=== PATIENT | male | born 1975 | race Caucasian/White ===

== ENCOUNTER 2017-07-13 04:20 | Observation (INO) | payer OTHER ==
[2017-07-13] MEDS ORDERED: ORPHENADRINE 30 MG/ML 2 ML VIAL IM STA (04:40)
[2017-07-13] MEDS ORDERED: KETOROLAC 60 MG/2 ML VIAL IM STA (04:40)
--- NOTE | 2017-07-13 04:48 | ED ---
Back Pain HPI - General Source: patient, family Limitations: no limitations - History of Present Illness MD Complaint: back pain -: minutes(s) Similar Symptoms Previously: Yes Place: home Radiation: right leg Severity: severe Quality: other Consistency: intermittent Improves With: none Worsens With: movement Context: bending Associated Symptoms: denies other symptoms <Kennedy Higgins - Last Filed: 07/13/17 07:11> <Ronald Austin - Last Filed: 07/13/17 09:20> - General Chief Complaint: Back Pain/Injury Stated Complaint: Back pain Time Seen by Provider: 07/13/17 04:34 - History of Present Illness Initial Comments: This patient is a 41-year-old man who presents to be evaluated for lumbar back pain, mainly at the right above the posterior iliac crest, that radiates towards his right buttocks and right leg. The pain came on this morning acutely when he went to tie his boots before going to work. The patient states that the pain seems to come in spasms or waves. When it does it is severe. It seems he brought on by trying to move. It may be a touch better if he tries to lie still. He has not had pain radiating to the abdomen. He has not had change in bladder or bowel function. There is no saddle anesthesia. He did not have any acute trauma to his back. (Kennedy Higgins) - Related Data Home Medications Medication Instructions Recorded Confirmed Baclofen (Unknown Dose) 1 tab PO BID PRN 07/13/17 07/13/17 Allergies Allergy/AdvReac Type Severity Reaction Status Date / Time No Known Allergies Allergy Verified 07/13/17 07:18 Review of Systems ROS Other: All systems not noted in ROS Statement are negative. Constitutional: Denies: fever, weakness Gastrointestinal: Denies: abdominal pain, diarrhea, constipation Genitourinary: Denies: dysuria, hematuria Musculoskeletal: Reports: as per HPI, back pain Neurological: Denies: weakness, numbness, paresthesias <Kennedy Higgins - Last Filed: 07/13/17 07:11> ROS Other: All systems not noted in ROS Statement are negative. <Ronald Austin - Last Filed: 07/13/17 09:20> ROS Statement: Those systems with pertinent positive or pertinent negative responses have been documented in the HPI. Past Medical History Additional Past Medical History / Comment(s): neuropathy History of Any Multi-Drug Resistant Organisms: None Reported Past Surgical History: Tonsillectomy Additional Past Surgical History / Comment(s): cataract surgery Past Psychological History: No Psychological Hx Reported Smoking Status: Never smoker Past Alcohol Use History: Occasional Past Drug Use History: None Reported <Kennedy Higgins - Last Filed: 07/13/17 07:11> General Exam Limitations: no limitations General appearance: alert, in no apparent distress Head exam: Present: atraumatic, normocephalic Neck exam: Present: full ROM Respiratory exam: Present: normal lung sounds bilaterally. Absent: respiratory distress, wheezes, rales, rhonchi, stridor Cardiovascular Exam: Present: regular rate, normal rhythm, normal heart sounds. Absent: systolic murmur, diastolic murmur, rubs, gallop GI/Abdominal exam: Present: soft. Absent: distended, tenderness, guarding, rebound, mass, pulsatile mass Back exam: Present: normal inspection. Absent: CVA tenderness (R), CVA tenderness (L) Neurological exam: Present: reflexes normal. Absent: motor sensory deficit Skin exam: Present: warm, dry, intact, normal color. Absent: rash <NainKennedy chris - Last Filed: 07/13/17 07:11> Vital Signs 07/13/17 07/13/17 07/13/17 04:23 05:26 06:28 Temperature 97.9 F 98.9 F Pulse Rate 90 90 86 Respiratory 18 20 18 Rate Blood Pressure 144/91 154/79 113/69 O2 Sat by Pulse 100 98 100 Oximetry Medical Decision Making <NainariesKennedy - Last Filed: 07/13/17 07:11> - Radiology Data Radiology results: report reviewed (Computed tomography scan lumbar spine shows multilevel degenerative changes. No significant change from prior MRI.) <Ronald Austin - Last Filed: 07/13/17 09:20> - Medical Decision Making Patient was reevaluated by myself, Dr. Austin. Patient has tenderness to the paralumbar muscles. Patient states he's been having chronic problems from his background radiating to his leg, mostly the knee. Patient states no one is able to tell him why he is having these problems. Patient states today he bent over to tie his boot and has had significant discomfort since that time, specifically with movement. Discomfort is only mild at rest. Pedal pulses are intact. Sensation is intact. No leg weakness. Patient and family are updated on results. Patient states he is unable to walk or move without significant pain. is not comfortable with discharge home. Case was discussed in detail with Dr. Myrick, who will admit for Dr. Cole. (Ronald Austin) Disposition <Kennedy Higgins - Last Filed: 07/13/17 07:11> <Ronald Austin - Last Filed: 07/13/17 09:20> Clinical Impression: Lower back pain Disposition: ADMITTED IP TO THIS HOSP Referrals: Silvestre Wong DO [Primary Care Provider] - 1-2 days
[2017-07-13] MEDS ORDERED: HYDROmorphone 1 MG/ML 1 ML SYRINGE IM STA (05:32)
[2017-07-13] MEDS ORDERED: methylPREDNISolone SOD SUCCI 125 MG/2 ML VIAL IM ONE (06:21)
[2017-07-13 06:30] VITALS: RESP 18
[2017-07-13] MEDS ORDERED: DIAZEPAM 5 MG/ML 2 ML INJ IM ONE (07:11)
[2017-07-13] MEDS ORDERED: DIAZEPAM 5 MG TAB PO STA (07:14)
--- NOTE | 2017-07-13 07:47 | CT ---
EXAMINATION TYPE: CT lumbar spine wo con DATE OF EXAM: 07/13/2017 COMPARISON: MRI lumbar spine January 21, 2016 HISTORY: Severe low back pain, no known injury CT DLP: 946 mGycm Automated exposure control for dose reduction was used. FINDINGS: I will use of some assuming bilateral accessory L1 ribs. Given this assumption there are 5 lumbar-typ e vertebra. Lumbar spine show slight levoconvex scoliotic curvature on today's study may be positiona l. There is no acute fracture or dislocation evident. There is fairly mild to moderate multilevel ant erior and lateral spurring redemonstrated. Vertebral body heights are maintained. There is mild to mo derate disc space narrowing L2-L3 level redemonstrated. No large posterior disc herniations are seen on sagittal images. Review of axial images shows the T12-L1 and L1-L2 levels to remain within normal limits. Axial images at L2-L3 level show mild broad disc bulge mildly effacing anterior thecal sac with more prominent left lateral disc protrusion component seen best coronal image 19. There is mild bilateral anterior inferior neural foraminal narrowing. No significant change from prior MRI. Axial images at L3-L4 level show broad disc bulge mildly effacing anterior thecal sac and mild facet degenerative changes bilaterally. Mild bilateral anterior inferior neural foraminal narrowing at this level redemonstrated. No significant change from prior. Axial images at L4-L5 and L5-S1 level show mild facet degenerative changes bilaterally otherwise are felt within normal limits. There are suspected 2 small calculi centrally in right kidney mid to lower pole level on coronal imag e 15 measuring 2-3 mm in size each. Some spurring and joint space loss right sacroiliac joint is note d seen best near coronal image 20. IMPRESSION: Multilevel degenerative changes in the lumbar spine as detailed above, no significant tia nge from prior MRI is identified. There is no acute fracture or dislocation seen.
[2017-07-13] MEDS ORDERED: KETOROLAC 30 MG/ML 1 ML VIAL IVP PRN (09:20)
[2017-07-13] MEDS ORDERED: NALOXONE 0.4 MG/ML 1 ML VIAL IV PRN (09:20)
[2017-07-13] MEDS: HYDROmorphone 1 MG/ML 1 ML SYRINGE IVP PRN ×2 (09:38→12:38)
[2017-07-13 11:54] VITALS: BP 115/59; PULSE 76; TEMP 97.6
[2017-07-13] MEDS ORDERED: methylPREDNISolone SOD SUCCI 125 MG/2 ML VIAL IV SCH (16:00)
--- NOTE | 2017-07-13 17:39 | P.HPIM ---
History of Present Illness 41-year-old male came in with complaints of lumbar back pain severe pain about 10 x 10 unable to I am bleed because of which patient was admitted patient was treated with the Decadron with significant improvement in his symptoms patient denied any weakness and bilateral lower limbs patient denied radicular pain patient denied any loss of bowel or bladder continence patient pain significantly improved after initial management with with pain medications and antispasmodic medications. Patient had a CAT scan of the lumbar spine which showed chronic lumbar degenerative disc disease multiple levels without any significant disc herniation. 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 Patient was advised to use BenGay and heat padding. Patient will follow with orthopedic surgery as an outpatient. Patient doesn't have any red flag signs of back pain at this time. Review of Systems PHYSICAL EXAMINATION: GENERAL: The patient is alert and oriented x3, not in any acute distress. Well developed, well nourished. HEENT: Pupils are round and equally reacting to light. EOMI. No scleral icterus. No conjunctival pallor. Normocephalic, atraumatic. No pharyngeal erythema. No thyromegaly. CARDIOVASCULAR: S1 and S2 present. No murmurs, rubs, or gallops. PULMONARY: Chest is clear to auscultation, no wheezing or crackles. ABDOMEN: Soft, nontender, nondistended, normoactive bowel sounds. No palpable organomegaly. MUSCULOSKELETAL: Severe back pain as mentioned above without any radicular symptoms EXTREMITIES: No cyanosis, clubbing, or pedal edema. NEUROLOGICAL: Gross neurological examination did not reveal any focal deficits. SKIN: No rashes. Past Medical History Additional Past Medical History / Comment(s): Past low back pain. 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 Past Anesthesia/Blood Transfusion Reactions: No Reported Reaction Smoking Status: Never smoker - Past Family History Father Additional Family Medical History / Comment(s): Father has a pacemaker. Mother Family Medical History: Hypertension Additional Family Medical History / Comment(s): Degenerative arthritis. Medications and Allergies Home Medications Medication Instructions Recorded Confirmed Type Cyclobenzaprine [Flexeril] 10 mg PO TID PRN #20 tab 07/13/17 Rx HYDROcodone/APAP 7.5-325MG [[place] 1 tab PO Q4H PRN #20 tab 07/13/17 Rx 7.5-325] Meloxicam [Meloxicam] 15 mg PO DAILY PRN 07/13/17 07/13/17 History Meloxicam [Mobic] 7.5 mg PO DAILY PRN #20 tab 07/13/17 Rx Ranitidine HCl [Zantac] 150 mg PO BID #30 tab 07/13/17 Rx predniSONE 10 mg PO DAILY #30 tab 07/13/17 Rx Allergies Allergy/AdvReac Type Severity Reaction Status Date / Time No Known Allergies Allergy Verified 07/13/17 07:18 Physical Exam Vitals: Vital Signs Temp Pulse Pulse Resp BP BP Pulse Ox 07/13/17 11:50 97.6 F 76 18 115/59 96 07/13/17 10:36 97.8 F 87 18 115/66 96 07/13/17 09:35 97.8 F 88 18 133/77 100 07/13/17 06:28 98.9 F 86 18 113/69 100 07/13/17 05:26 90 20 154/79 98 07/13/17 04:23 97.9 F 90 18 144/91 100 Intake and Output 07/13/17 07/13/17 07/13/17 06:59 14:59 22:59 Intake Total 450 Balance 450 Intake: Oral 450 Other: Voiding Method Urinal Weight 83.915 kg PHYSICAL EXAMINATION: GENERAL: The patient is alert and oriented x3, not in any acute distress. Well developed, well nourished. HEENT: Pupils are round and equally reacting to light. EOMI. No scleral icterus. No conjunctival pallor. Normocephalic, atraumatic. No pharyngeal erythema. No thyromegaly. CARDIOVASCULAR: S1 and S2 present. No murmurs, rubs, or gallops. PULMONARY: Chest is clear to auscultation, no wheezing or crackles. ABDOMEN: Soft, nontender, nondistended, normoactive bowel sounds. No palpable organomegaly. MUSCULOSKELETAL: Patient does have lower lumbar paraspinal tenderness, did not perform straight leg raising test as patient was already evaluated by orthopedic surgery EXTREMITIES: No cyanosis, clubbing, or pedal edema. NEUROLOGICAL: Gross neurological examination did not reveal any focal deficits. SKIN: No rashes. Thrombosis Risk Factor Assmnt - Choose All That Apply Any of the Below Risk Factors Present?: Yes Each Factor Represents 1 point: Age 41-60 years, Obesity (BMI >25) Other Risk Factors: No Other congenital or acquired thrombophilia - If yes, enter type in comment: No Thrombosis Risk Factor Assessment Total Risk Factor Score: 2 Thrombosis Risk Factor Assessment Level: Low Risk Assessment and Plan Plan: #1 low back pain with paraspinal muscle spasm: Patient will be discharged up with above-mentioned instructions. #2 severe lumbar degenerative disc disease.
--- NOTE | 2017-07-13 17:40 | P.DS ---
Providers Date of admission: 07/13/17 09:21 Attending physician: Bart Myrick Consults: 07/13/17 09:21 Consult Physician Routine Consulting Provider: Harshad Renee Consult Reason/Comments: low back pain Do you want consulting provider notified?: Yes 07/13/17 13:08 Consult to Anesthesia Routine Consulting Provider: Anesthesia,Services Consult Reason/Comments: Right lower extremity radiculopathy and low back pain Primary care physician: Silvestre Wong [facility] Course: Please refer to my HPI Plan - Discharge Summary Discharge Rx Participant: No New Discharge Prescriptions: New Cyclobenzaprine [Flexeril] 10 mg PO TID PRN #20 tab PRN Reason: Spasms HYDROcodone/APAP 7.5-325MG [[place] 7.5-325] 1 tab PO Q4H PRN #20 tab PRN Reason: Pain Meloxicam [Mobic] 7.5 mg PO DAILY PRN #20 tab PRN Reason: Pain predniSONE 10 mg PO DAILY #30 tab Ranitidine HCl [Zantac] 150 mg PO BID #30 tab Continue Meloxicam [Meloxicam] 15 mg PO DAILY PRN PRN Reason: KNEE PAIN Discharge Medication List Cyclobenzaprine [Flexeril] 10 mg PO TID PRN #20 tab 07/13/17 [Rx] HYDROcodone/APAP 7.5-325MG [[place] 7.5-325] 1 tab PO Q4H PRN #20 tab 07/13/17 [Rx ] Meloxicam [Meloxicam] 15 mg PO DAILY PRN 07/13/17 [History] Meloxicam [Mobic] 7.5 mg PO DAILY PRN #20 tab 07/13/17 [Rx] Ranitidine HCl [Zantac] 150 mg PO BID #30 tab 07/13/17 [Rx] predniSONE 10 mg PO DAILY #30 tab 07/13/17 [Rx] Follow up Appointment(s)/Referral(s): Harshad Renee DO [Doctor of Osteopathic Medicine] - As Needed Silvestre Wong DO [Primary Care Provider] - 1-2 days Patient Instructions/Handouts: Acute Low Back Pain (GEN) Discharge Disposition: HOME SELF-CARE
--- NOTE | 2017-07-14 17:46 | P.CNOR ---
History of Present Illness - [facility] Consult date: 07/13/17 Requesting physician: Ronald Austin Consult reason: low back pain, other (Right lower extremity radiculopathy) History of present illness: Patient is very pleasant 41-year-old male who is seen and examined at the bedside for further evaluation after consultation was placed for acute low back pain with significant right lower extremity radiculopathy. Patient states this morning he was sitting down leaning towards his left putting on his work boots when he experienced significant pain in his lumbar spine with pain radiating down the right posterior leg all the way to the foot. He had significant difficulty with standing on his right lower extremity pain. He was brought to the emergency department for further evaluation. A CT lumbar spine was performed at that time. He was also given Solu-Medrol 125 mg. He was transferred to the observation unit for further evaluation. Since being transferred he is receiving Dilaudid and Toradol for some relief of symptoms. He states he does have a history of low back pain and previously had an MRI performed approximately year and a half ago. He states prior to that he did have a significant injury which he tore his right hamstring and has had some difficulty with his right leg since that time. He denies specific weakness the right lower extremity but has difficulty ambulating due to pain. Denies any left lower extremity radiculopathy or weakness. He is able to eat without significant difficulty. Past Medical History Additional Past Medical History / Comment(s): Past low back pain. 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 Past Anesthesia/Blood Transfusion Reactions: No Reported Reaction Smoking Status: Never smoker - Past Family History Father Additional Family Medical History / Comment(s): Father has a pacemaker. Mother Family Medical History: Hypertension Additional Family Medical History / Comment(s): Degenerative arthritis. Medications and Allergies Home Medications Medication Instructions Recorded Confirmed Type Cyclobenzaprine [Flexeril] 10 mg PO TID PRN #20 tab 07/13/17 Rx HYDROcodone/APAP 7.5-325MG [[place] 1 tab PO Q4H PRN #20 tab 07/13/17 Rx 7.5-325] Meloxicam [Meloxicam] 15 mg PO DAILY PRN 07/13/17 07/13/17 History Meloxicam [Mobic] 7.5 mg PO DAILY PRN #20 tab 07/13/17 Rx Ranitidine HCl [Zantac] 150 mg PO BID #30 tab 07/13/17 Rx predniSONE 10 mg PO DAILY #30 tab 07/13/17 Rx Allergies Allergy/AdvReac Type Severity Reaction Status Date / Time No Known Allergies Allergy Verified 07/13/17 07:18 Physical Examination Physical exam: Patient is awake, alert, and oriented 3 Vital signs stable Good chest excursion with deep inspiration and expiration Examination of lumbar spine reveals skin is intact with no abrasions, lacerations, or bruises; no erythema, purulence or signs of infection Lumbar paravertebral spasm most significant on the right Dorsiflexion, plantarflexion, and extensor hallucis longus positive sustained bilaterally Lower extremity strength 5/5 bilaterally but right lower extremity movements are slow throughout range of motion Patellar reflex 2+ bilaterally and Achilles reflexes 2+ bilaterally No lower extremity hyperreflexia bilaterally Straight leg test negative bilateral lower extremities Negative Lasegue's test bilaterally No signs or symptoms of DVT; no calf pain No pain with internal and external rotation of the hips bilaterally Neurovascularly intact Results Pertinent Studies: CT lumbar spine: Imaging compared to previous MRI taken on 01/21/2016; No evidence off acute fracture or dislocation; overall alignment of the lumbar spine appears to be adequately maintained; L2-3 degenerative disc disease and disc bulging; L3-4 broad-based disc bulge and mild facet arthropathy resulting in mild bilateral neural foraminal narrowing; L4-5 and L5-S1 mild facet degenerative changes Assessment and Plan (1) Intractable low back pain Status: Acute Code(s): M54.5 - LOW BACK PAIN SNOMED Code(s): 49213235899161485 (2) Lumbar back pain with radiculopathy affecting right lower extremity Status: Acute Code(s): M54.17 - RADICULOPATHY, LUMBOSACRAL REGION SNOMED Code(s): 662463294 (3) Lumbar degenerative disc disease Status: Acute Code(s): M51.36 - OTHER INTERVERTEBRAL DISC DEGENERATION, LUMBAR REGION SNOMED Code(s): 63508965 (4) Lumbar facet arthropathy Status: Acute Code(s): M46.96 - UNSPECIFIED INFLAMMATORY SPONDYLOPATHY, LUMBAR REGION SNOMED Code(s): 772644363 Plan: Assessment: Intractable low back pain Right lower extremity radiculopathy Difficulty with ambulation due to lower extremity radiculopathy L2-3 degenerative disc disease Lumbar facet arthropathy Plan: 1. Patient has been discussed in detail with Dr. Sudheer Renee. After further examination of the patient, reviewing of imaging, and discussion with the patient, we were planning to obtain an MRI of the lumbar spine without contrast for further evaluation. We also planning to start the patient on Solu-Medrol 80 mg IV every 8 hours. We were also planning to consult with pain management further evaluation discuss possible treatment options. Medicine states they are currently planing to discharge the patient today with subsequent evaluation in the outpatient setting 2. Continue pain control 3. Medicine to continue following the patient closely; patient has been discussed in detail with medicine who states they're not planning to obtain the MRI of the lumbar spine today but we'll plan for discharge today further evaluation set for the outpatient setting; medicine plans to prescribe the patient a prednisone taper and Flexeril at discharge 4. Consultation has been placed with Dr. Mcgrath in pain management 5. Patient will plan to follow-up in the outpatient setting in approximately 2 weeks for further evaluation; if his symptoms continue to be persistent, we'll plan to obtain an MRI of the lumbar spine at that time 6. Patient has been discussed in detail with Dr. Sudheer Renee and he agrees with this plan Time with Patient: Greater than 30
== END 2017-07-13 14:41 | disposition home or self-care (01) ==
LOC: EC 04:20 → SUPCPDRO 04:20 → 3OBS 09:21
PROVIDERS: ADMIT Internal Medicine; ATTEND Internal Medicine
DX: M51.16 Intervertebral disc disorders with radiculopathy, lumbar region (principal); M46.96 Unspecified inflammatory spondylopathy, lumbar region; G62.9 Polyneuropathy, unspecified; M62.830 Muscle spasm of back; Z82.49 Family history of ischemic heart disease and other diseases of the circulatory system; Z79.899 Other long term (current) drug therapy; Z79.52 Long term (current) use of systemic steroids; Z82.61 Family history of arthritis
CPT/HCPCS: 96375; 96376; 96372; 96374; 99285; 72131; G0378; J2360; J2930; J1885 ×2; J1170

== ENCOUNTER → 2017-07-26 | Outpatient (CLI) | payer OTHER ==
--- NOTE | 2017-07-27 09:13 | MR ---
EXAMINATION TYPE: MR lumbar spine wo con DATE OF EXAM: 07/26/2017 COMPARISON: MRI 01/21/2016, CT scan 07/13/2017 HISTORY: Back pain TECHNIQUE: T1 and T2 axial and sagittal images of the lumbar spine are submitted. FINDINGS: There is no abnormal signal seen within the visualized spinal cord or paraspinal soft tissu es. At L1-2 there is no disc herniation or canal stenosis. No foraminal encroachment. At L2-3 there is moderate degenerative disc disease with circumferential disc bulging. Bulging greate r laterally to left all with findings suggestive of a broad-based protrusion There is borderline kaitlin l stenosis. Mild bilateral foraminal At L3-4 there is mild degenerative disc disease with circumferential disc bulging and hypertrophic ch marita since. Borderline canal stenosis. Mild bilateral foraminal encroachment At L4-5 there is no disc herniation or canal stenosis. No foraminal encroachment At L5-S1 there is hypertrophic change of the facets. No disc herniation or canal stenosis. No foramin al encroachment IMPRESSION: 1. Similar findings to the CT scan 07/13/2017 demonstrating multilevel degenerative disc disease. Dis c bulging at L2-3 and L3-4 as discussed above. Broad-based lateral protrusion to the left at L2-L3. 2. Foraminal encroachment and L2-3 and L3-4
== END | disposition home or self-care (01) ==
LOC: RADMRIMAIN 20:51
PROVIDERS: ATTEND Family Medicine
DX: M51.16 Intervertebral disc disorders with radiculopathy, lumbar region (principal)
CPT/HCPCS: 72148

== ENCOUNTER 2018-03-20 18:11 | Emergency (ER) | payer OTHER ==
[2018-03-20] MEDS ORDERED: SODIUM CHLORIDE 0.9% 1,000 ML IV STA (18:40)
[2018-03-20] MEDS ORDERED: KETOROLAC 30 MG/ML 1 ML VIAL IVP STA (18:42)
--- NOTE | 2018-03-20 18:48 | ED ---
General Adult HPI - General Source: patient, RN notes reviewed Mode of arrival: ambulatory Limitations: no limitations <Jacky Gasca P - Last Filed: 03/20/18 21:05> <Cheyenne Banegas P - Last Filed: 03/21/18 21:16> - General Chief complaint: Abdominal Pain Stated complaint: abd pain Time Seen by Provider: 03/20/18 18:20 - History of Present Illness Initial comments: 42-year-old male presents to the emergency determine for a chief complaint of right upper quadrant pain 4 hours. Patient states he ate a large meal at [email or web address] and started to have pain shortly after that. Patient states the pain is also radiating to his back. Patient denies any abdominal surgeries. No major medical conditions. Patient denies any pain or burning with urination. Patient admits to nausea at home, but denies vomiting. Patient last had a normal bowel movement today, no diarrhea. No fevers or chills at home. Patient denies heavy drinking. Patient has no other complaints at this time including shortness of breath, chest pain, abdominal pain, nausea or vomiting, headache, or visual changes. (Jacky Gasca) - Related Data Home Medications Medication Instructions Recorded Confirmed Meloxicam 15 mg PO DAILY PRN 07/13/17 07/13/17 Previous Rx's Medication Instructions Recorded Cyclobenzaprine [Flexeril] 10 mg PO TID PRN #20 tab 07/13/17 HYDROcodone/APAP 7.5-325MG [[place] 1 tab PO Q4H PRN #20 tab 07/13/17 7.5-325] Meloxicam [Mobic] 7.5 mg PO DAILY PRN #20 tab 07/13/17 Ranitidine HCl [Zantac] 150 mg PO BID #30 tab 07/13/17 predniSONE 10 mg PO DAILY #30 tab 07/13/17 Allergies Allergy/AdvReac Type Severity Reaction Status Date / Time No Known Allergies Allergy Verified 03/20/18 18:13 Review of Systems ROS Other: All systems not noted in ROS Statement are negative. <Jacky Gasca - Last Filed: 03/20/18 21:05> ROS Other: All systems not noted in ROS Statement are negative. <Cheyenne Banegas P - Last Filed: 03/21/18 21:16> ROS Statement: Those systems with pertinent positive or pertinent negative responses have been documented in the HPI. Past Medical History Additional Past Medical History / Comment(s): Past low back pain. 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 right knee replaced Past Anesthesia/Blood Transfusion Reactions: No Reported Reaction Past Psychological History: No Psychological Hx Reported Smoking Status: Never smoker Past Alcohol Use History: Occasional Past Drug Use History: None Reported - Past Family History Father Additional Family Medical History / Comment(s): Father has a pacemaker. Mother Family Medical History: Hypertension Additional Family Medical History / Comment(s): Degenerative arthritis. <Jacky Gasca P - Last Filed: 03/20/18 21:05> General Exam Limitations: no limitations General appearance: alert, in no apparent distress Head exam: Present: atraumatic, normocephalic Eye exam: Present: normal appearance. Absent: scleral icterus, conjunctival injection ENT exam: Present: normal exam, mucous membranes moist Neck exam: Present: normal inspection, full ROM. Absent: tenderness, meningismus, lymphadenopathy Respiratory exam: Present: normal lung sounds bilaterally. Absent: respiratory distress, wheezes, rales, rhonchi, stridor Cardiovascular Exam: Present: regular rate, normal rhythm, normal heart sounds. Absent: systolic murmur, diastolic murmur, rubs, gallop, clicks GI/Abdominal exam: Present: soft, tenderness (exquisite RUQ tenderness. mild epigastric tenderness. NO tenderness in the RLQ, LLQ, or LUQ. ), normal bowel sounds, other (+ hill sign, negative obturator, psoas, and rovsing signs.). Absent: distended, guarding, rebound, rigid Back exam: Present: CVA tenderness (R) (very mild CVA tenderness. ) <Jacky Gasca P - Last Filed: 03/20/18 21:05> Vital Signs 03/20/18 03/20/18 18:13 20:50 Temperature 98.3 F 97.6 F Pulse Rate 68 57 L Respiratory 18 16 Rate Blood Pressure 158/102 144/93 O2 Sat by Pulse 100 99 Oximetry Medical Decision Making - Lab Data Result diagrams: 03/20/18 18:55 03/20/18 18:55 <Jacky Gasca P - Last Filed: 03/20/18 21:05> - Lab Data Result diagrams: 03/20/18 18:55 03/20/18 18:55 <Cheyenne Banegas P - Last Filed: 03/21/18 21:16> - Medical Decision Making 42-year-old male presents to the emergency department for a chief complaint of right upper quadrant pain 4 hours. This started shortly after consuming a large meal from below. Denies heavy drinking or major medical complications. Denes chest pain, SOB. On exam patient has exquisite right upper quadrant tenderness. No tenderness elsewhere in the abdomen. Patient also has right flank pain. CBC and CMP unremarkable. Urine is clear, no evidence of blood or infection. Ultrasound of the gallbladder shows no gallstones. Patient was given Toradol in the emergency department. On reexamination, patient is feeling much better. Pain is resolved. I did offer a CAT scan which patient refused. Patient will be discharged home with follow-up to primary care in 1-2 days. (Jacky Gasca) The patient was seen and evaluated independently by the mid-level provider. I did discuss the workup and disposition plan with the mid-level provider, I was not has to independently evaluate this patient. I agree with the workup and disposition as documented in the note. (Cheyenne Banegas) - Lab Data Lab Results 03/20/18 03/20/18 03/20/18 Range/Units 18:55 18:55 19:03 WBC 6.9 (3.8-10.6) k/uL RBC 4.70 (4.30-5.90) m/uL Hgb 13.7 (13.0-17.5) gm/dL Hct 39.6 (39.0-53.0) % MCV 84.3 (80.0-100.0) fL MCH 29.1 (25.0-35.0) pg MCHC 34.6 (31.0-37.0) g/dL RDW 13.6 (11.5-15.5) % Plt Count 217 (150-450) k/uL Neutrophils % 68 % Lymphocytes % 21 % Monocytes % 7 % Eosinophils % 2 % Basophils % 1 % Neutrophils # 4.7 (1.3-7.7) k/uL Lymphocytes # 1.5 (1.0-4.8) k/uL Monocytes # 0.5 (0-1.0) k/uL Eosinophils # 0.1 (0-0.7) k/uL Basophils # 0.0 (0-0.2) k/uL Sodium 141 (137-145) mmol/L Potassium 4.4 (3.5-5.1) mmol/L Chloride 104 (98-107) mmol/L Carbon Dioxide 30 (22-30) mmol/L Anion Gap 7 mmol/L BUN 11 (9-20) mg/dL Creatinine 1.07 (0.66-1.25) mg/dL Est GFR (CKD-EPI)AfAm >90 (>60 ml/min/1.73 sqM) Est GFR (CKD-EPI)NonAf 85 (>60 ml/min/1.73 sqM) Glucose 97 (74-99) mg/dL Calcium 9.3 (8.4-10.2) mg/dL Total Bilirubin 0.3 (0.2-1.3) mg/dL AST 19 (17-59) U/L ALT 29 (21-72) U/L Alkaline Phosphatase 85 (38-126) U/L Total Protein 6.4 (6.3-8.2) g/dL Albumin 4.5 (3.5-5.0) g/dL Amylase 43 (30-110) U/L Lipase 141 (23-300) U/L Urine Color Light Yellow Urine Appearance Clear (Clear) Urine pH 6.5 (5.0-8.0) Ur Specific [place] 1.012 (1.001-1.035) Urine Protein Negative (Negative) Urine Glucose (UA) Negative (Negative) Urine Ketones Negative (Negative) Urine Blood Negative (Negative) Urine Nitrite Negative (Negative) Urine Bilirubin Negative (Negative) Urine Urobilinogen <2.0 (<2.0) mg/dL Ur Leukocyte Esterase Negative (Negative) Disposition Is patient prescribed a controlled substance at d/c from ED?: No Time of Disposition: 21:07 <Jacky Gasca P - Last Filed: 03/20/18 21:05> <Cheyenne Banegas P - Last Filed: 03/21/18 21:16> Clinical Impression: Abdominal pain Disposition: HOME SELF-CARE Condition: Good Instructions: Abdominal Pain (ED) Additional Instructions: Please take Motrin or Tylenol for pain. Please follow-up with primary care in 1 -2 days. Return to the emergency department if you have any worsening symptoms. Referrals: Silvestre Wong DO [Primary Care Provider] - 1-2 days
[2018-03-20 19:15] LABS: Appearance,Urine Clear (Clear); Bilirubin,Urine Negative (Negative); Blood,Urine Negative (Negative); Color,Urine Light Yellow; Glucose,Urine (UA) Negative (Negative); Ketones,Urine Negative (Negative); Leukocyte Esterase,Urine Negative (Negative); Nitrite,Urine Negative (Negative); PH, Urine 6.5 (5.0-8.0); Protein,Urine Negative (Negative); Specific Gravity,Urine 1.012 (1.001-1.035); Urobilinogen,Urine <2.0 mg/dL (<2.0)
[2018-03-20 19:18] LABS: ALT 29 U/L (21-72); AST 19 U/L (17-59); Albumin 4.5 g/dL (3.5-5.0); Alkaline Phosphatase 85 U/L (38-126); Amylase 43 U/L (30-110); Anion Gap 7 mmol/L; Blood Urea Nitrogen 11 mg/dL (9-20); Calcium 9.3 mg/dL (8.4-10.2); Carbon Dioxide 30 mmol/L (22-30); Chloride 104 mmol/L (98-107); Glucose 97 mg/dL (74-99); Lipase 141 U/L (23-300); Potassium 4.4 mmol/L (3.5-5.1); Sodium 141 mmol/L (137-145); Total Bilirubin 0.3 mg/dL (0.2-1.3); Total Protein 6.4 g/dL (6.3-8.2)
[2018-03-20 19:21] LABS: Basophils % (A) 1 %; Eosinophils # (A) 0.1 k/uL (0-0.7); Eosinophils % (A) 2 %; HCT 39.6 % (39.0-53.0); HGB 13.7 gm/dL (13.0-17.5); Lymphocytes # (A) 1.5 k/uL (1.0-4.8); Lymphocytes % (A) 21 %; MCH 29.1 pg (25.0-35.0); MCHC 34.6 g/dL (31.0-37.0); MCV 84.3 fL (80.0-100.0); Monocytes # (A) 0.5 k/uL (0-1.0); Monocytes % (A) 7 %; Neutrophils # (A) 4.7 k/uL (1.3-7.7); Neutrophils % (A) 68 %; Platelet Count 217 k/uL (150-450); RDW 13.6 % (11.5-15.5); WBC 6.9 k/uL (3.8-10.6)
--- NOTE | 2018-03-20 20:13 | US ---
EXAMINATION TYPE: US gallbladder DATE OF EXAM: 03/20/2018 COMPARISON: NONE CLINICAL HISTORY: Pain. EXAM MEASUREMENTS: Liver Length: 15.9 cm Gallbladder Wall: 0.3 cm CBD: 0.4 cm Right Kidney: 10.2 x 4.4 x 5.1 cm Limited due to bowel gas. Pancreas: Obscured by bowel gas portions visualized appear wnl Liver: wnl Gallbladder: wnl Evidence for sonographic Mars's sign: Yes CBD: wnl Right Kidney: wnl IMPRESSION: No gallstones or dilated ducts. Negative exam.
[2018-03-20 20:50] VITALS: BP 144/93; PULSE 57; RESP 16; TEMP 97.6
== END 2018-03-20 21:23 | disposition home or self-care (01) ==
LOC: EC 18:11
DX: R10.11 Right upper quadrant pain (principal); Z53.29 Procedure and treatment not carried out because of patient's decision for other reasons
CPT/HCPCS: 36415; 80053; 82150; 83690; 85025; 81003; 76705; 99284; 96374; 96361; J1885

== ENCOUNTER → 2023-10-26 | Outpatient (CLI) | payer OTHER ==
--- NOTE | 2023-10-26 15:13 | US ---
EXAMINATION TYPE: US abdomen limited DATE OF EXAM: 10/26/2023 COMPARISON: NONE CLINICAL INDICATION: Male, 48 years old with history of R10.11 right upper quad. pain R11.0 nausea; e pigastric pain TECHNIQUE: Multiple sonographic images of the right upper quadrant are obtained. FINDINGS: EXAM MEASUREMENTS: Liver Length: 13.1 cm Gallbladder Wall: 0.3 cm CBD: 0.3 cm Right Kidney: 10.4 x 5.2 x 5.0 cm Pancreas: Tail obscured by overlying bowel gas Liver: wnl Gallbladder: no evidence of stones Evidence for sonographic Mars's sign: no CBD: limited evaluation, visualized portion normal caliber. Right Kidney: no evidence of hydronephrosis IMPRESSION: Unremarkable sonographic examination of the right upper quadrant.
== END | disposition home or self-care (01) ==
LOC: RADUSWWP 06:49
PROVIDERS: ATTEND Family Medicine
DX: R10.11 Right upper quadrant pain (principal); R11.0 Nausea
CPT/HCPCS: 76705

== ENCOUNTER → 2023-11-05 | Outpatient (CLI) | payer OTHER ==
--- NOTE | 2023-11-08 19:50 | MR ---
EXAMINATION TYPE: MR cervical spine wo con DATE OF EXAM: 11/05/2023 7:11 PM CLINICAL INDICATION:Male, 48 years old with history of M54.2 CERVICAL SPINE PAIN; PHH, Numbness and t ingling into both arms x6 months COMPARISON: Spine radiographs 10/08/2023. TECHNIQUE: Multi planar, multi sequence imaging was performed utilizing: T1-weighted, T2-weighted, an d turbo inversion recovery imaging of the cervical spine. IV Contrast: cc (none if empty) FINDINGS: Alignment: The cervical vertebral bodies have preserved heights. Alignment is within normal limits gi javier patient positioning. Bones: Osteophytes and disc space narrowing most pronounced at the C5-C7 vertebral levels. Cord: The spinal cord is unremarkable with regards to their signal intensity and morphology. Discs: Intervertebral disc signal is maintained. C2-C3: No significant disc pathology. The spinal canal is patent. Bilateral facet and uncovertebral joint arthropathy are present with mild left neural foraminal stenosis. The right neural foramen is p atent. C3-C4: No significant disc pathology. The spinal canal is patent. Bilateral facet and uncovertebral joint arthropathy are present with mild left neural foraminal stenosis. The right neural foramen is p atent. C4-C5: No significant disc pathology. The spinal canal is patent. Bilateral facet and uncovertebral joint arthropathy are present with mild bilateral neural foraminal stenosis. C5-C6: No significant disc pathology. The spinal canal is patent. Bilateral facet and uncovertebral joint arthropathy are present with moderate bilateral neural foraminal stenosis. C6-C7: No significant disc pathology. The spinal canal is patent. No neural foraminal stenosis. C7-T1: No significant disc pathology. The spinal canal is patent. No neural foraminal stenosis. Other: None. IMPRESSION: 1. No evidence for disc herniation or significant spinal canal stenosis. 2. Multilevel disc degeneration with associated osteoarthritic changes neural foraminal stenosis wors e at C5-C6 bilaterally with moderate stenosis.
== END | disposition home or self-care (01) ==
LOC: RADMRIMAIN 18:34
PROVIDERS: ATTEND Orthopaedic Surgery
DX: M50.30 Other cervical disc degeneration, unspecified cervical region (principal); M48.02 Spinal stenosis, cervical region
CPT/HCPCS: 72141

== ENCOUNTER 2023-12-11 15:55 | Emergency (ER) | payer OTHER ==
[2023-12-11] MEDS: SODIUM CHLORIDE 0.9% 1,000 ML IV STA (16:42)
[2023-12-11] MEDS: ONDANSETRON 4 MG/2 ML VIAL IVP STA (16:43)
[2023-12-11] MEDS: KETOROLAC 15 MG/ML 1 ML VIAL IVP STA (16:43)
[2023-12-11 17:00] VITALS: TEMP 98
[2023-12-11 17:11] LABS: Basophils # (A) 0.1 k/uL (0-0.2); Basophils % (A) 1 %; Eosinophils # (A) 0.1 k/uL (0-0.7); Eosinophils % (A) 1 %; HCT 41.4 % (39.0-53.0); HGB 14.3 gm/dL (13.0-17.5); Lymphocytes # (A) 1.3 k/uL (1.0-4.8); Lymphocytes % (A) 17 %; MCH 30.7 pg (25.0-35.0); MCHC 34.6 g/dL (31.0-37.0); MCV 88.8 fL (80.0-100.0); Mean Platelet Volume 7.9; Monocytes # (A) 0.5 k/uL (0-1.0); Monocytes % (A) 6 %; Neutrophils % (A) 75 %; Platelet Count 246 k/uL (150-450); RBC 4.66 m/uL (4.30-5.90); RDW 13.6 % (11.5-15.5)
--- NOTE | 2023-12-11 17:13 | ED ---
Recheck HPI - General Chief Complaint: Abdominal Pain Stated Complaint: Abd pain Time Seen by Provider: 12/11/23 16:04 Source: patient, RN notes reviewed, old records reviewed Mode of arrival: ambulatory Limitations: no limitations - History of Present Illness Initial Comments: This is a 48-year-old male to the ER for evaluation today. Patient presents today for evaluation regards to severe abdominal pain with prior history of similar pain getting worse. Patient has had his gallbladder evaluated before and was told everything looked normal. Patient has no history of abdominal surgery severe right upper quadrant abdominal pain right-sided abdominal pain rating to his back currently. With nausea vomiting. Patient states the pain usually comes and goes but this time is persistent and severe MD Complaint: other (Persistent abdominal pain) -: hour(s) Returns Today for: persistent/worsening pain related to initial visit Symptoms Since Prior Visit: improved, worsening pain Associated Symptoms: nausea Treatments Prior to Arrival: Given Pain Meds on - Related Data Home Medications Medication Instructions Recorded Confirmed Meloxicam 15 mg PO DAILY PRN 07/13/17 07/13/17 Previous Rx's Medication Instructions Recorded Cyclobenzaprine [Flexeril] 10 mg PO TID PRN #20 tab 07/13/17 HYDROcodone/APAP 7.5-325MG [[place] 1 tab PO Q4H PRN #20 tab 07/13/17 7.5-325] Meloxicam [Mobic] 7.5 mg PO DAILY PRN #20 tab 07/13/17 Ranitidine HCl [Zantac] 150 mg PO BID #30 tab 07/13/17 predniSONE 10 mg PO DAILY #30 tab 07/13/17 Allergies Allergy/AdvReac Type Severity Reaction Status Date / Time No Known Allergies Allergy Verified 12/11/23 16:03 Review of Systems ROS Statement: Those systems with pertinent positive or pertinent negative responses have been documented in the HPI. ROS Other: All systems not noted in ROS Statement are negative. Past Medical History Additional Past Medical History / Comment(s): Past low back pain. 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 right knee replaced Past Anesthesia/Blood Transfusion Reactions: No Reported Reaction Past Psychological History: No Psychological Hx Reported Smoking Status: Never smoker Past Alcohol Use History: Occasional Past Drug Use History: None Reported - Past Family History Father Additional Family Medical History / Comment(s): Father has a pacemaker. Mother Family Medical History: Hypertension Additional Family Medical History / Comment(s): Degenerative arthritis. General Exam Limitations: no limitations General appearance: alert, in no apparent distress Head exam: Present: atraumatic, normocephalic, normal inspection Eye exam: Present: normal appearance, PERRL, EOMI. Absent: scleral icterus, conjunctival injection, periorbital swelling ENT exam: Present: normal exam, mucous membranes moist Neck exam: Present: normal inspection. Absent: tenderness, meningismus, lymphadenopathy Respiratory exam: Present: normal lung sounds bilaterally. Absent: respiratory distress, wheezes, rales, rhonchi, stridor Cardiovascular Exam: Present: regular rate, normal rhythm, normal heart sounds. Absent: systolic murmur, diastolic murmur, rubs, gallop, clicks GI/Abdominal exam: Present: soft, normal bowel sounds. Absent: distended, tenderness, guarding, rebound, rigid Extremities exam: Present: normal inspection, full ROM, normal capillary refill. Absent: tenderness, pedal edema, joint swelling, calf tenderness Back exam: Present: normal inspection Neurological exam: Present: alert, oriented X3, CN II-XII intact Psychiatric exam: Present: normal affect, normal mood Skin exam: Present: warm, dry, intact, normal color. Absent: rash Course Vital Signs 12/11/23 12/11/23 15:59 19:28 Temperature 98.0 F Pulse Rate 60 86 Respiratory 18 14 Rate Blood Pressure 146/85 114/74 O2 Sat by Pulse 98 98 Oximetry - Reevaluation(s) Reevaluation #1: 12/11/23 17:31 Medical records is reviewed Reevaluation #2: 12/11/23 17:31 Patient symptoms are unchanged Reevaluation #3: 12/11/23 19:23 Patient informed of results questions answered Reevaluation #4: Was pt. sent in by a medical professional or institution (, PA, STOPPING BUILDER, urgent care, hospital, or penitentiary...) When possible be specific @ -no Did you speak to anyone other than the patient for history (EMS, parent, family, police, friend...)? What history was obtained from this source @ -no Did you review nursing and triage notes (agree or disagree)? Why? @ -agree Are old charts reviewed (outside hosp., previous admission, EMS record, old EKG, old radiological studies, urgent care reports/EKG's, penitentiary records)? Report findings @ -yes Differential Diagnosis (chest pain, altered mental status, abdominal pain women, abdominal pain men, vaginal bleeding, weakness, fever, dyspnea, syncope, headache, dizziness, GI bleed, back pain, seizure, CVA, palpatations, mental health, musculoskeletal)? @ -prior EKG interpreted by me (3pts min.). @ -yes X-rays interpreted by me (1pt min.). @ -no CT interpreted by me (1pt min.). @ -Yes negative for acute disease U/S interpreted by me (1pt. min.). @ -Yes negative for acute disease What testing was considered but not performed or refused? (CT, X-rays, U/S, labs)? Why? @ -none What meds were considered but not given or refused? Why? @ -none Did you discuss the management of the patient with other professionals (professionals i.e. , PA, STOPPING BUILDER, lab, RT, psych nurse, social services counselor, powder expert, teacher, chief procurement officer, housing case manager)? Give summary @ -no Was smoking cessation discussed for >3mins.? @ -no Was critical care preformed (if so, how long)? @ -no Were there social determinants of health that impacted care today? How? (Homelessness, low income, unemployed, alcoholism, drug addiction, transportation, low edu. Level, literacy, decrease access to med. care, halfway, rehab)? @ -none Was there de-escalation of care discussed even if they declined (Discuss DNR or withdrawal of care, Hospice)? DNR status @ -no What co-morbidities impacted this encounter? (DM, HTN, Smoking, COPD, CAD, C ancer, CVA, ARF, Chemo, Hep., AIDS, mental health diagnosis, sleep apnea, morbid obesity)? @ -none Was patient admitted / discharged? Hospital course, mention meds given and route, prescriptions, significant lab abnormalities, going to OR and other pertinent info. @ - 48 male to ER for evaluation of right upper quadrant abdominal pain severe and intermittent. Patient has adequate pain control currently and can be discharged home Discharge Undiagnosed new problem with uncertain prognosis? @ -no Drug Therapy requiring intensive monitoring for toxicity (Heparin, Nitro, Insulin, Cardizem)? @ -no Were any procedures done? @ -no Diagnosis/symptom? @ -Abdominal pain chest pain Acute, or Chronic, or Acute on Chronic? @ -Acute Uncomplicated (without systemic symptoms) or Complicated (systemic symptoms)? @ -Complicated Side effects of treatment? @ -no Exacerbation, Progression, or Severe Exacerbation? @ -exacerbation Poses a threat to life or bodily function? How? (Chest pain, [place], [place], pneumonia, PE, COPD, DKA, ARF, appy, cholecystitis, CVA, Diverticulitis, Homicidal, Suicidal, threat to staff... and all critical care pts) @ -yes with significant chest pain Reevaluation #5: Differential Abdominal Pain Men: Appendicitis, cholecystitis, diverticulosis, ischemic bowel, pancreatitis, hepatitis, UTI, gastroenteritis, AAA, incarcerated hernia, bowel obstruction, constipation, inflammatory bowel, hepatitis, peptic ulcer disease, splenic infarction, perforated viscus, testicular torsion, this is not meant to be an all-inclusive list Medical Decision Making - Medical Decision Making 48 male to ER for evaluation of right upper quadrant abdominal pain severe and intermittent. Patient has adequate pain control currently and can be discharged home - Lab Data Result diagrams: 12/11/23 16:20 12/11/23 16:20 Lab Results 12/11/23 12/11/23 12/11/23 Range/Units 16:20 16:20 16:20 WBC 8.0 (3.8-10.6) k/uL RBC 4.66 (4.30-5.90) m/uL Hgb 14.3 (13.0-17.5) gm/dL Hct 41.4 (39.0-53.0) % MCV 88.8 (80.0-100.0) fL MCH 30.7 (25.0-35.0) pg MCHC 34.6 (31.0-37.0) g/dL RDW 13.6 (11.5-15.5) % Plt Count 246 (150-450) k/uL MPV 7.9 Neutrophils % 75 % Lymphocytes % 17 % Monocytes % 6 % Eosinophils % 1 % Basophils % 1 % Neutrophils # 6.0 (1.3-7.7) k/uL Lymphocytes # 1.3 (1.0-4.8) k/uL Monocytes # 0.5 (0-1.0) k/uL Eosinophils # 0.1 (0-0.7) k/uL Basophils # 0.1 (0-0.2) k/uL Sodium 141 (137-145) mmol/L Potassium 3.8 (3.5-5.1) mmol/L Chloride 107 (98-107) mmol/L Carbon Dioxide 25 (22-30) mmol/L Anion Gap 9 mmol/L BUN 17 (9-20) mg/dL Creatinine 1.07 (0.66-1.25) mg/dL Est GFR (CKD-EPI)AfAm >90 (>60 ml/min/1.73 sqM) Est GFR (CKD-EPI)NonAf 81 (>60 ml/min/1.73 sqM) Glucose 121 H (74-99) mg/dL Calcium 9.4 (8.4-10.2) mg/dL Phosphorus 3.9 (2.5-4.5) mg/dL Magnesium 1.8 (1.6-2.3) mg/dL Total Bilirubin 0.4 (0.2-1.3) mg/dL GGT (0-73) U/L AST 15 L (17-59) U/L ALT 19 (4-49) U/L Alkaline Phosphatase 98 (38-126) U/L Troponin I <0.012 (0.000-0.034) ng/mL Total Protein 6.6 (6.3-8.2) g/dL Albumin 4.4 (3.5-5.0) g/dL Amylase 49 (30-110) U/L Lipase 207 (23-300) U/L 12/11/23 Range/Units 16:20 WBC (3.8-10.6) k/uL RBC (4.30-5.90) m/uL Hgb (13.0-17.5) gm/dL Hct (39.0-53.0) % MCV (80.0-100.0) fL MCH (25.0-35.0) pg MCHC (31.0-37.0) g/dL RDW (11.5-15.5) % Plt Count (150-450) k/uL MPV Neutrophils % % Lymphocytes % % Monocytes % % Eosinophils % % Basophils % % Neutrophils # (1.3-7.7) k/uL Lymphocytes # (1.0-4.8) k/uL Monocytes # (0-1.0) k/uL Eosinophils # (0-0.7) k/uL Basophils # (0-0.2) k/uL Sodium (137-145) mmol/L Potassium (3.5-5.1) mmol/L Chloride (98-107) mmol/L Carbon Dioxide (22-30) mmol/L Anion Gap mmol/L BUN (9-20) mg/dL Creatinine (0.66-1.25) mg/dL Est GFR (CKD-EPI)AfAm (>60 ml/min/1.73 sqM) Est GFR (CKD-EPI)NonAf (>60 ml/min/1.73 sqM) Glucose (74-99) mg/dL Calcium (8.4-10.2) mg/dL Phosphorus (2.5-4.5) mg/dL Magnesium (1.6-2.3) mg/dL Total Bilirubin (0.2-1.3) mg/dL GGT 26 (0-73) U/L AST (17-59) U/L ALT (4-49) U/L Alkaline Phosphatase (38-126) U/L Troponin I (0.000-0.034) ng/mL Total Protein (6.3-8.2) g/dL Albumin (3.5-5.0) g/dL Amylase (30-110) U/L Lipase (23-300) U/L - Radiology Data Radiology results: report reviewed (Ultrasound right upper quadrant for the gallbladder and CT of the chest abdomen pelvis negative for acute disease), image reviewed Disposition Clinical Impression: Abdominal pain, Abdominal colic Disposition: HOME SELF-CARE Condition: Good Instructions (If sedation given, give patient instructions): Abdominal Pain (ED) Is patient prescribed a controlled substance at d/c from ED?: No Referrals: Silvestre Wong DO [Primary Care Provider] - 1-2 days Aicha Degroot MD [STAFF PHYSICIAN] - 1-2 days Time of Disposition: 19:50
[2023-12-11 17:17] LABS: ALT 19 U/L (4-49); AST 15 U/L (17-59); African American GFR (CKD) >90 (>60 ml/min/1.73 sqM); Albumin 4.4 g/dL (3.5-5.0); Alkaline Phosphatase 98 U/L (38-126); Amylase 49 U/L (30-110); Anion Gap 9 mmol/L; Blood Urea Nitrogen 17 mg/dL (9-20); Calcium 9.4 mg/dL (8.4-10.2); Carbon Dioxide 25 mmol/L (22-30); Chloride 107 mmol/L (98-107); Glucose 121 mg/dL (74-99); Lipase 207 U/L (23-300); Magnesium 1.8 mg/dL (1.6-2.3); Non-African American GFR(CKD) 81 (>60 ml/min/1.73 sqM); Phosphorus 3.9 mg/dL (2.5-4.5); Potassium 3.8 mmol/L (3.5-5.1); Sodium 141 mmol/L (137-145); Total Bilirubin 0.4 mg/dL (0.2-1.3); Total Protein 6.6 g/dL (6.3-8.2)
--- NOTE | 2023-12-11 18:04 | US ---
EXAMINATION TYPE: US gallbladder DATE OF EXAM: 12/11/2023 COMPARISON: 03/20/2018, 10/26/2023 CLINICAL INDICATION: Male, 48 years old with history of GB; pain TECHNIQUE: Multiple sonographic images of the right upper quadrant are obtained. FINDINGS: EXAM MEASUREMENTS: Liver Length: 16.2 cm Gallbladder Wall: .3 cm CBD: .4 cm Right Kidney: 9.7 x 4.6 x 4.9 cm LACE MACHINE OPERATOR NOTES: Pancreas: Tail obscured by overlying bowel gas Liver: wnl Gallbladder: No stones seen Evidence for sonographic Mars's sign: No CBD: wnl Right Kidney: No hydronephrosis or masses seen IMPRESSION: No evidence for acute process.
--- NOTE | 2023-12-11 19:13 | CT ---
EXAMINATION TYPE: CT angio chest CT DLP: Combined DLP of 1480.7 mGycm, Automated exposure control for dose reduction was used. DATE OF EXAM: 12/11/2023 6:48 PM COMPARISON: None CLINICAL INDICATION:Male, 48 years old with history of pain; RUQ abd pain x1yr. TECHNIQUE/CONTRAST: CTA scan of the thorax is performed with IV Contrast, patient injected with 100 ml mL of Isovue 370, MIP images are created and reviewed these are created on a separate workstation.. FINDINGS: Pulmonary Artery: There is no evidence for a filling defect within the pulmonary vasculature to sugge st acute pulmonary embolism. The pulmonary artery is of normal size. Lungs/Pleura: No evidence of focal consolidation, pleural effusion or pneumothorax. Airway: Large airways are patent. Heart: Heart is within normal limits for size. Vasculature: No evidence of aortic aneurysm. Mediastinum: No gross evidence of adenopathy. Musculoskeletal: No acute osseous abnormalities Soft Tissues: Unremarkable. Lower neck: No significant findings. Upper Abdomen: No significant findings. IMPRESSION: No evidence of pulmonary embolism.
--- NOTE | 2023-12-11 19:16 | CT ---
EXAMINATION TYPE: CT abdomen pelvis w con CT DLP: Combined DLP of 1480.7 mGycm, Automated exposure control for dose reduction was used. DATE OF EXAM: 12/11/2023 6:49 PM COMPARISON: 07/13/2017 CLINICAL INDICATION:Male, 48 years old with history of pain; RUQ abd pain x1yr . TECHNIQUE: Axial CT abdomen pelvis w con;Sagittal and coronal reformats were created on a separate w orkstation. Contrast used:100 ml mL of Isovue 370 with IV Contrast, (none if empty) Oral contrast used: without Oral Contrast (none if empty) FINDINGS: LOWER CHEST: Unremarkable ABDOMEN LIVER: Unremarkable GALLBLADDER AND BILE DUCTS: Unremarkable. PANCREAS: Unremarkable. SPLEEN: Unremarkable. ADRENAL GLANDS: Unremarkable. KIDNEYS AND URETERS: No evidence of hydronephrosis or renal calculus. The ureters are unremarkable. PELVIS BLADDER: Unremarkable REPRODUCTIVE: Unremarkable. ABDOMEN & PELVIS STOMACH AND BOWEL: No evidence of bowel obstruction. PERITONEUM/RETROPERITONEUM: No evidence of pneumoperitoneum or free fluid. VASCULATURE: No evidence of aortic aneurysm. MUSCULOSKELETAL: No acute osseous abnormalities LYMPH NODES: No gross evidence for lymphadenopathy. SOFT TISSUE/ABDOMINAL WALL: Right fat containing inguinal hernia. IMPRESSION: No evidence for right upper quadrant process to explain the patient's pain for the last year.
[2023-12-11 19:29] VITALS: BP 114/74; PULSE 86; RESP 14
== END 2023-12-11 20:04 | disposition home or self-care (01) ==
LOC: EC 15:55
DX: R10.84 Generalized abdominal pain (principal); R07.9 Chest pain, unspecified
CPT/HCPCS: 99284; 96374; 96375; 96361; 36415; 80053; 82150; 82977; 83690; 83735; 84100; 84484; 85025; 76705; 71275; 74177; J2405; J1885; Q9967

== ENCOUNTER 2023-12-21 07:59 | Day surgery (SDC) | payer OTHER ==
[2023-12-20 09:06] VITALS: BMI 28.5
[~2023-12-21 07:59] MED LIST: LIDOCAINE 1% (10MG/ML) FOR IV START INTRADERMA PRN
[2023-12-21] MEDS: LACTATED RINGERS 1,000 ML IV SCH (08:33)
[2023-12-21] MEDS ORDERED: LIDOCAINE 1% INJ 10MG/ML (20 ML MDV) ONE (08:55)
[2023-12-21] MEDS ORDERED: PROPOFOL 10 MG/ML 20 ML VIAL IV ONE (08:55)
[2023-12-21 08:56] VITALS: TEMP 97.7
--- NOTE | 2023-12-21 08:57 | P.GSHP ---
History of Present Illness H&P Date: 12/21/23 Chief Complaint: Colon cancer screening 48-year-old male here for colonoscopy. Last colonoscopy in his 20s. No bowel complaints. No family history of colon cancer. Has been having some right upper quadrant pain recently. Past Medical History Additional Past Medical History / Comment(s): Past low back pain. 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 right knee replaced Past Anesthesia/Blood Transfusion Reactions: No Reported Reaction Additional Past Anesthesia/Blood Transfusion Reaction / Comment(s): no blood transfusion Smoking Status: Never smoker - Past Family History Father Additional Family Medical History / Comment(s): Father has a pacemaker. Mother Family Medical History: Hypertension Additional Family Medical History / Comment(s): Degenerative arthritis. Medications and Allergies Home Medications Medication Instructions Recorded Confirmed Type No Known Home Medications 12/20/23 12/20/23 History Allergies Allergy/AdvReac Type Severity Reaction Status Date / Time No Known Allergies Allergy Verified 12/21/23 08:29 Surgical - Exam Vital Signs Temp Pulse Resp BP Pulse Ox 97.7 F 56 L 16 141/85 96 12/21/23 08:30 12/21/23 08:30 12/21/23 08:30 12/21/23 08:30 12/21/23 08:30 Physical exam: General: Well-developed, well-nourished HEENT: Normocephalic, sclerae nonicteric Abdomen: Nontender, nondistended Extremities: No edema Neuro: Alert and oriented Assessment and Plan (1) Colon cancer screening Narrative/Plan: Will proceed with colonoscopy at this time. Current Visit: Yes Status: Acute Code(s): Z12.11 - ENCOUNTER FOR SCREENING FOR MALIGNANT NEOPLASM OF COLON SNOMED Code(s): 880401097
--- NOTE | 2023-12-21 09:07 | P.PCN ---
Date of Procedure: 12/21/23 Procedure(s) Performed: PREOPERATIVE DIAGNOSIS: Colon cancer screening POSTOPERATIVE DIAGNOSIS: Normal exam PROCEDURE: Colonoscopy ANESTHESIA: MAC SURGEON: Jaren Wang M.D. SPECIMENS: None ENDOSCOPIC PROCEDURE: The patient was placed on the endoscopy table in the left decubitus position. The Olympus colonoscope was inserted into the anus and passed under direct visualization to the base of the cecum. The appendiceal orifice was visualized. From that point the scope was slowly withdrawn inspecti ng all surfaces carefully. There were no neoplastic inflammatory or polypoid lesions throughout the cecum, ascending, transverse, descending, sigmoid and rectum. There was no visible diverticulosis noted. Digital rectal examination was normal. The patient was taken to the recovery room in stable condition per anesthesia guidelines. RECOMMENDATIONS: Resume diet. Repeat colonoscopy 10 years. Continue workup of patient's right upper quadrant abdominal pain.
[2023-12-21 09:43] VITALS: BP 126/87; PULSE 78; RESP 18
== END 2023-12-21 09:44 | disposition home or self-care (01) ==
LOC: ORWHC2ENDO 07:59
PROVIDERS: ATTEND Surgery
DX: Z12.11 Encounter for screening for malignant neoplasm of colon (principal); Z98.890 Other specified postprocedural states
CPT/HCPCS: 45378; J2001; J2704

== ENCOUNTER 2024-12-16 11:00 | Emergency (ER) | payer OTHER ==
[2024-12-16 11:06] VITALS: RESP 17
--- NOTE | 2024-12-16 11:35 | ED ---
General Adult HPI - General Chief complaint: Wound/Laceration Stated complaint: L Hand Lac Time Seen by Provider: 12/16/24 11:10 Source: patient, RN notes reviewed Mode of arrival: ambulatory Limitations: no limitations - History of Present Illness Initial comments: 49-year-old male presents to the emergency department for evaluation of left hand finger laceration. Patient states that he was working with a saw when he accidentally cut his fingers. He notes that he cut his 2nd through 4th fingers with the size. He is unsure when he last had a tetanus vaccine. He does note normal sensation. He notes normal range of motion. - Related Data Previous Rx's Medication Instructions Recorded Cephalexin [Keflex] 500 mg PO Q6HR #40 cap 12/16/24 HYDROcodone/APAP 5-325MG [Oden 5] 1 each PO Q6HR PRN #12 tab 12/16/24 Allergies Allergy/AdvReac Type Severity Reaction Status Date / Time No Known Allergies Allergy Verified 12/16/24 11:06 Review of Systems ROS Statement: Those systems with pertinent positive or pertinent negative responses have been documented in the HPI. ROS Other: All systems not noted in ROS Statement are negative. Past Medical History Additional Past Medical History / Comment(s): Past low back pain. 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 right knee replaced Past Anesthesia/Blood Transfusion Reactions: No Reported Reaction Past Psychological History: No Psychological Hx Reported Smoking Status: Never smoker - Past Family History Father Additional Family Medical History / Comment(s): Father has a pacemaker. Mother Family Medical History: Hypertension Additional Family Medical History / Comment(s): Degenerative arthritis. General Exam Limitations: no limitations General appearance: alert, in no apparent distress Head exam: Present: atraumatic, normocephalic, normal inspection Eye exam: Present: normal appearance, PERRL, EOMI. Absent: scleral icterus, conjunctival injection, periorbital swelling ENT exam: Present: normal exam, mucous membranes moist Respiratory exam: Present: normal lung sounds bilaterally. Absent: respiratory distress, wheezes, rales, rhonchi, stridor Cardiovascular Exam: Present: regular rate, normal rhythm, normal heart sounds. Absent: systolic murmur, diastolic murmur, rubs, gallop, clicks Course Vital Signs 12/16/24 12/16/24 11:02 14:49 Temperature 98.4 F 98.2 F Pulse Rate 93 86 Respiratory 17 17 Rate Blood Pressure 172/113 138/82 O2 Sat by Pulse 98 97 Oximetry Procedures - Laceration Laceration #1 Consent Obtained: verbal consent Indication: laceration Site: hand Size (cm): 1 Description: linear Depth: simple, single layer Anesthetic Used: lidocaine 1% Anesthesia Technique: nerve block Pre-repair: wound explored, irrigated extensively Type of Sutures: other Size of Sutures: 5-0 Number of Sutures: 6 Technique: simple, interrupted Patient Tolerated Procedure: well, no complications Additional Comments: Third digit Laceration #2 Consent Obtained: verbal consent Indication: laceration Site: hand Size (cm): 1 Description: linear Depth: simple, single layer Anesthetic Used: lidocaine 1% Anesthesia Technique: nerve block Pre-repair: wound explored, irrigated extensively Type of Sutures: other Size of Sutures: 5-0 Number of Sutures: 5 Technique: simple, interrupted Patient Tolerated Procedure: well, no complications Additional Comments: Fourth digit Medical Decision Making - Medical Decision Making Was pt. sent in by a medical professional or institution (, PA, EMBEDDED FIRMWARE ENGINEER, urgent care, hospital, or senior care...) When possible be specific @ -No Did you speak to anyone other than the patient for history (EMS, parent, family, police, friend...)? What history was obtained from this source @ -No Did you review nursing and triage notes (agree or disagree)? Why? @ -I reviewed and agree with nursing and triage notes Were old charts reviewed (outside hosp., previous admission, EMS record, old EKG, old radiological studies, urgent care reports/EKG's, senior care records)? Report findings @ -No old charts were reviewed Differential Diagnosis (chest pain, altered mental status, abdominal pain women, abdominal pain men, vaginal bleeding, weakness, fever, dyspnea, syncope, headache, dizziness, GI bleed, back pain, seizure, CVA, palpatations, mental health, musculoskeletal)? @ -Laceration, abrasion, open fracture, this was not all-inclusive EKG interpreted by me (3pts min.). @ -None X-rays interpreted by me (1pt min.). @ -X-ray of the hand reveals few tiny osseous fragments adjacent to the proximal aspect of the distal phalanx of the fourth digit. No other obvious acute fracture. CT interpreted by me (1pt min.). @ -None done U/S interpreted by me (1pt. min.). @ -None done What testing was considered but not performed or refused? (CT, X-rays, U/S, labs)? Why? @ -None What meds were considered but not given or refused? Why? @ -None Did you discuss the management of the patient with other professionals (professionals i.e. , PA, EMBEDDED FIRMWARE ENGINEER, lab, RT, psych nurse, social media strategist, brick layer, teacher, custody officer, director of casework department)? Give summary @ -No Was smoking cessation discussed for >3mins.? @ -No Was critical care preformed (if so, how long)? @ -No Were there social determinants of health that impacted care today? How? (Homelessness, low income, unemployed, alcoholism, drug addiction, transportation, low edu. Level, literacy, decrease access to med. care, correction, rehab)? @ -No Was there de-escalation of care discussed even if they declined (Discuss DNR or withdrawal of care, Hospice)? DNR status @ -No What co-morbidities impacted this encounter? (DM, HTN, Smoking, COPD, CAD, Cancer, CVA, ARF, Chemo, Hep., AIDS, mental health diagnosis, sleep apnea, morbid obesity)? @ -None Was patient admitted / discharged? Hospital course, mention meds given and route, prescriptions, significant lab abnormalities, going to OR and other pertinent info. @ -Discharge. Patient presented the emergency department for finger lacerati on. patient cut himself with a hand saw. Patient was updated on tetanus vaccine. He was provided medication for pain control in the emergency department. x-ray of the hand few tiny osseous fragments adjacent to the proximal aspect of the distal phalanx of the fourth digit. The wound was irrigated. The lacerations on the 3rd and 4th digits were repaired. Patient was placed in finger splint. Advised him to follow-up with PCP. He is understanding agreeable with discharge plan. Patient stable at time of discharge. Case discussed with Dr. Higgins Undiagnosed new problem with uncertain prognosis? @ -No Drug Therapy requiring intensive monitoring for toxicity (Heparin, Nitro, Insulin, Cardizem)? @ -No Were any procedures done? @ -Laceration repair Diagnosis/symptom? @ -Laceration Acute, or Chronic, or Acute on Chronic? @ -Acute Uncomplicated (without systemic symptoms) or Complicated (systemic symptoms)? @ -Uncomplicated Side effects of treatment? @ -No Exacerbation, Progression, or Severe Exacerbation? @ -No Poses a threat to life or bodily function? How? (Chest pain, [place], [place], pneumonia, PE, COPD, DKA, ARF, appy, cholecystitis, CVA, Diverticulitis, Homicidal, Suicidal, threat to staff... and all critical care pts) @ -No Disposition Clinical Impression: Laceration Disposition: HOME SELF-CARE Condition: Stable Instructions (If sedation given, give patient instructions): Care For Your Stitches (DC) Additional Instructions: Please follow up with your doctor. Return to the emergency department for new or worsening symptoms. Prescriptions: Cephalexin [Keflex] 500 mg PO Q6HR #40 cap HYDROcodone/APAP 5-325MG [Oden 5] 1 each PO Q6HR PRN #12 tab PRN Reason: Pain Is patient prescribed a controlled substance at d/c from ED?: No Referrals: Silvestre Wong DO [Primary Care Provider] - 1-2 days Escobar Casiano DO [Doctor of Osteopathic Medicine] - 1-2 days
[2024-12-16] MEDS: HYDROmorphone 1 MG/ML 1 ML SYRINGE IM STA (11:38)
[2024-12-16] MEDS: DIPH,PERTUS(ACELL)TETVAC-LF 0.5 ML VIAL IM ONE (11:40)
--- NOTE | 2024-12-16 12:08 | XR ---
Left hand HISTORY: Pain following skill saw laceration. COMPARISON: None TECHNIQUE: 3 views left hand were obtained. FINDINGS: Adjacent to the proximal aspect of the distal phalanx of the fourth digit there are a few tiny radiop aque foreign bodies possibly tiny osseous fragments although the donor site from the distal phalanx i s not seen. There are no definite cortical defects or fractures. There are no intraosseous abnormalit ies. IMPRESSION: A few tiny osseous fragments adjacent to the proximal aspect of the distal phalanx of the fourth digit as described above. No definite fractures or focal intraosseous abnormality seen. There are no metallic radiopaque foreign bodies. [facility], Workstation: [facility], 12/16/2024 12:05 PM
[2024-12-16] MEDS: LIDOCAINE 1% INJ 10MG/ML (20 ML MDV) SQ ONE (13:05)
[2024-12-16] MEDS: cefTRIAXone 1,000 MG VIAL (IM USE) IM STA (14:46)
[2024-12-16 14:49] VITALS: BP 138/82; PULSE 86; TEMP 98.2
== END 2024-12-16 14:48 | disposition home or self-care (01) ==
LOC: EC 11:00
DX: S61.412A Laceration without foreign body of left hand, initial encounter (principal); Z23 Encounter for immunization; W27.8XXA Contact with other nonpowered hand tool, initial encounter
CPT/HCPCS: 73130; 90715; 99283; 90471; 12001; 96372 ×2; J2003; J0696; J1171